=== PATIENT | male | born 2000 | race Two or more races ===

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

== ENCOUNTER 2022-04-30 20:34 | Emergency (ER) | payer MEDICAID, OTHER ==
[~2022-04-30] VITALS: Ht 172.7 cm; Wt 61.4 kg
[2022-04-30] MEDS ORDERED: DOXY-354 PO (20:54)
[2022-04-30] MEDS ORDERED: PROP20TA18 PO (20:54)
[2022-04-30] MEDS ORDERED: CETI-450 PO (20:54)
[2022-04-30] MEDS ORDERED: ACETAMINOPHEN 500 MG TABLET PO ONE (22:00)
[2022-04-30] MEDS ORDERED: GuaiFENesin/D-METHORPHAN [SUGAR-FREE] 200-20MG/10 ML SYRUP UDCUP PO ONE (22:00)
[2022-04-30] MEDS ORDERED: GUAIFDM PO (22:11)
[2022-04-30] MEDS ORDERED: ACET-66 PO (22:11)
[2022-04-30] MEDS ORDERED: IBUP-1554 PO (22:11)
[2022-04-30 23:00] VITALS: BP 119/74
[2022-04-30 23:38] LABS: COVID AG,FIA SOURCE NASOPHARYNGEAL
[2022-05-01] LABS: INFLUENZA TYPE B NEGATIVE FOR TYPE B (NEGATIVE)
[2022-05-01 00:12] LABS: INFLUENZA TYPE A POSITIVE FOR TYPE A (NEGATIVE)
== END 2022-05-01 03:12 | disposition home or self-care (01) ==
LOC: EMS 21:17
DX: J10.1 Influenza due to other identified influenza virus with other respiratory manifestations (principal); R42 Dizziness and giddiness; Z91.030 Bee allergy status; Z20.822 Contact with and (suspected) exposure to COVID-19
CPT/HCPCS: 87804; 99283

== ENCOUNTER 2023-08-27 00:26 | Emergency (ER) | payer OTHER ==
[~2023-08-27] VITALS: Ht 167.6 cm; Wt 75.0 kg
[~2023-08-27 00:26] MED LIST: ACET-66 PO; CETI-450 PO; DOXY-354 PO; GUAIFDM PO; IBUP-1554 PO; PROP20TA18 PO
[2023-08-27 00:32] VITALS: BP 126/70; PULSE 88; RESP 18; TEMP 98.3
== END 2023-08-27 02:11 | disposition left against medical advice (07) ==
LOC: EMS 00:27
DX: R51.9 Headache, unspecified (principal); Z53.21 Procedure and treatment not carried out due to patient leaving prior to being seen by health care provider
CPT/HCPCS: 99281; Z7502